=== PATIENT | male | born 1955 | race Asian ===

== ENCOUNTER 2019-08-05 18:18 | Inpatient (IN) | payer BC ==
[~2019-08-05] VITALS: Ht 175.3 cm; Wt 78.9 kg
--- NOTE | 2019-08-05 18:20 | NUR ---
PT BIBA TO BED 09.
[2019-08-05 18:25] VITALS: BP 80/52
[2019-08-05] MEDS ORDERED: NACL 0.9% 1,000 ML IV ONE ×2 (18:35→19:15)
--- NOTE | 2019-08-05 18:38 | NUR ---
received from ems from pt's home sudden onset of palpitations with sob upon getting out of bed to go to restroom today as per pt. syncope---no injury denies dizziness at this time---full clear speech oriented name place time event
--- NOTE | 2019-08-05 18:48 | NUR ---
pacer pads placed on pt---lab unable to draw 2 to hypotension persist
--- NOTE | 2019-08-05 18:49 | NUR ---
cxr at bedside
--- NOTE | 2019-08-05 19:02 | NUR ---
remains reverse charlene--lab able to draw now
--- NOTE | 2019-08-05 19:25 | NUR ---
REPORT RECEIVED FROM KAUSHIK RN, PT IS AOX4, PATIENT SHIVERING AND COLD. HR 52, BP 78/46, RR 12, SPO2 100%. UNABLE TO DETERMINE TEMP, LAST TAKEN WAS 97.1 PER KAUSHIK HYMAN. PT ON 2L O2 NC. DR BENITEZ AT BEDSIDE.
--- NOTE | 2019-08-05 19:25 | NUR ---
PT PLACED IN REVERSE [place], FAMILY AT BEDSIDE
[2019-08-05 19:29] LABS: BASOPHILS % (AUTO) 0.6 % (0.0-2.0); EOSINOPHILS # (AUTO) 0.2 K/uL (0-0.4); EOSINOPHILS % (AUTO) 2.8 % (0.0-4.0); HEMATOCRIT 37.2 % (36-52); HEMOGLOBIN 11.9 g/dL (12.0-18.0); LYMPHOCYTES # (AUTO) 2.1 K/uL (2.0-11.5); LYMPHOCYTES % (AUTO) 30.8 % (20.5-51.1); MEAN CORPUSCULAR HEMOGLOBIN 31 pg (27-31); MEAN CORPUSCULAR HGB CONC 32 g/dL (33-37); MEAN CORPUSCULAR VOLUME 96.1 fL (80-94); MONOCYTES # (AUTO) 0.5 K/uL (0.8-1.0); MONOCYTES % (AUTO) 7.4 % (1.7-9.3); NEUTROPHILS % (AUTO) 58.4 % (42.2-75.2); PLATELET COUNT (AUTO) 267 K/uL (140-450); RED BLOOD CELL COUNT(AUTO) 3.87 MIL/uL (4.20-6.10); RED CELL DISTRIBUTION WIDTH 13.9 % (11.6-13.7); WHITE BLOOD COUNT (AUTO) 6.8 K/uL (4.8-10.8)
--- NOTE | 2019-08-05 19:32 | NUR ---
INFLUENZA SWAB OBTAINED
--- NOTE | 2019-08-05 19:35 | NUR ---
LAB AT BEDSIDE
[2019-08-05 19:47] LABS: ALBUMIN 3.1 g/dL (3.4-5.0); ANION GAP 14.8 (8-16); CARBON DIOXIDE 26.7 mmol/L (21-32); CREATININE 2.6 mg/dL (0.6-1.3); POTASSIUM 4.5 mmol/L (3.5-5.1); TOTAL BILIRUBIN 0.9 mg/dL (0.0-1.0)
[2019-08-05] MEDS ORDERED: metroNIDAZOLE 500 MG/NS PREMIX 100 ML IV ONE (20:55)
[2019-08-05] MEDS ORDERED: LEVOFLOXACIN 500 MG/D5W PREMIX 100 ML IV ONE (20:55)
--- NOTE | 2019-08-05 21:15 | NUR ---
PATIENT AOX4, BREATHING EVEN AND UNLABORED, SKIN WARM AND DRY. FAMILY AT BEDSIDE
--- NOTE | 2019-08-05 21:21 | NUR ---
PT STATES HE IS STILL UNABLE TO URINATE, DR BENITEZ MADE AWARE
--- NOTE | 2019-08-05 22:06 | NUR ---
METRONIDAZOLE ORDERED
[2019-08-05] MEDS ORDERED: NACL 0.9% 1,000 ML IV SCH (22:11)
[2019-08-05] MEDS ORDERED: HYDROcodone/APAP 5/325 MG 1 TAB TAB PO PRN (22:15)
[2019-08-05] MEDS ORDERED: ONDANSETRON 4 MG/2 ML VIAL IM/IVP PRN (22:15)
[2019-08-05] MEDS ORDERED: LORazepam 2 MG/ML VIAL IM/IVP PRN (22:15)
[2019-08-05] MEDS ORDERED: DOCUSATE SODIUM 100 MG GELCAP PO PRN (22:15)
[2019-08-05] MEDS ORDERED: ACETAMINOPHEN 325 MG TAB PO PRN (22:15)
[2019-08-05] MEDS ORDERED: ZOLPIDEM 5 MG TAB PO PRN (22:15)
[2019-08-05] MEDS ORDERED: MORPHINE SULFATE 2 MG/ML SYR IVP PRN (22:15)
--- NOTE | 2019-08-05 22:26 | NUR ---
PT STILL UNABLE TO URINATE, RESIDENT AT BEDSIDE AND MADE AWARE. PT AOX4, BREATHING EVEN AND UNALBORED
[2019-08-05 22:46] LABS: CHOL/HDL RATIO 3.6 (1-4.5); FREE T4 (FREE THYROXINE) 1.2 ng/dL (0.76-1.46); MAGNESIUM 1.9 mg/dL (1.8-2.4); PHOSPHORUS 4.7 mg/dL (2.5-4.9); THYROID STIMULATING HORMONE 5.22 uIU/mL (0.34-3.74)
--- NOTE | 2019-08-05 22:50 | NUR ---
Patient will be admitted to care of DR SCHNEIDER. Admited to TELE. Will go to room 107B. Belongings list completed. Report to JEREL HYMAN.
--- NOTE | 2019-08-05 22:50 | NUR ---
RECEIVED BEDSIDE REPORT FROM ER NURSE. PATIENT IS AWAKE, ALERT, AND COOPERATIVE. ADMITTING DIAGNOSIS SYNCOPE. RESPIRATION EVEN UNLABORED ON ROOM AIR. NO DISTRESS NOTED. SKIN IS WARM AND DRY. IV PATENT AND INTACT. HEART RATE REGULAR. S1&S2 NOTED. LUNGS SOUNDS CLEAR ON AUSCULTATION. BOWEL SOUNDS PRESENT IN ALL QUADRANTS. ABDOMEN SOFT AND NON-TENDER. DENIES PAIN. LAST BM 08/05/19. MRSA SCREEN DONE. VITALS WERE TAKEN. ORIENT PATIENT TO THE ROOM, STAFF, AND CALL LIGHT. ALL SAFETY MEASURES IN PLACE. BED IS AT LOW POSITION. CALL LIGHT WITHIN REACH AND VERBALIZES ITS USE. WILL CONTINUE TO MONITOR.
[2019-08-05] MEDS: CALCIUM CARB/VIT-D 500 MG/200 IU 1 TAB PO SCH (23:27)
[2019-08-05] MEDS: DEXT 5% / NACL 0.9% 500 ML IV SCH (23:28)
--- NOTE | 2019-08-05 23:30 | NUR ---
PATIENT IS HUNGRY. SANDWICH AND WATER PROVIDED. INSTRUCT PATIENT AT MIDNIGHT NO MORE EATING OR DRINKING PER DR. ORDER. WILL CONTINUE TO MONITOR.
[2019-08-05 23:35] VITALS: BP 114/71
[2019-08-06] VITALS (8 sets, daily range): BP systolic 116–144; BP diastolic 69–89
--- NOTE | 2019-08-06 00:10 | NUR ---
VITALS WERE TAKEN. PATIENT IN STABLE CONDITION. NO DISTRESS NOTED. WILL CONTINUE TO MONITOR.
--- NOTE | 2019-08-06 02:19 | NUR ---
CHECKED PATIENT. PATIENT SLEEPING RESPIRATION EVEN UNLABORED ON ROOM AIR. NO DISTRESS NOTED. WILL CONTINUE TO MONITOR.
--- NOTE | 2019-08-06 04:00 | NUR ---
VITALS WERE TAKEN. PATIENT IN STABLE CONDITION. NO DISTRESS NOTED. DENIES PAIN. WILL CONTINUE TO MONITOR.
[2019-08-06] MEDS: metroNIDAZOLE 500 MG/NS PREMIX 100 ML IV SCH ×3 (04:36→20:12)
[2019-08-06] MEDS: DEXT 5% / NACL 0.9% 500 ML IV SCH ×3 (06:54→23:56)
[2019-08-06 07:00] LABS: BASOPHILS % (AUTO) 0.4 % (0.0-2.0); EOSINOPHILS % (AUTO) 0.2 % (0.0-4.0); HEMATOCRIT 35.9 % (36-52); HEMOGLOBIN 11.4 g/dL (12.0-18.0); LYMPHOCYTES # (AUTO) 1.4 K/uL (2.0-11.5); LYMPHOCYTES % (AUTO) 19.9 % (20.5-51.1); MEAN CORPUSCULAR HEMOGLOBIN 31 pg (27-31); MEAN CORPUSCULAR HGB CONC 32 g/dL (33-37); MEAN CORPUSCULAR VOLUME 96.3 fL (80-94); MONOCYTES # (AUTO) 0.5 K/uL (0.8-1.0); MONOCYTES % (AUTO) 7.3 % (1.7-9.3); NEUTROPHILS % (AUTO) 72.2 % (42.2-75.2); PLATELET COUNT (AUTO) 265 K/uL (140-450); RED BLOOD CELL COUNT(AUTO) 3.73 MIL/uL (4.20-6.10); RED CELL DISTRIBUTION WIDTH 13.5 % (11.6-13.7); WHITE BLOOD COUNT (AUTO) 6.9 K/uL (4.8-10.8)
--- NOTE | 2019-08-06 07:05 | NUR ---
ENDORSED PATIENT TO DAY SHIFT NURSE. PATIENT IS IN STABLE CONDITION.
--- NOTE | 2019-08-06 07:06 | NUR ---
RECEIVED REPORT FROM BODY COMPONENT ENGINEER NURSE JEREL FOR CONTINUITY OF CARE. PT IN STABLE CONDITION. RESPIRATIONS EVEN AND UNLABORED, ROOM AIR. IV INTACT AND PATENT. SAFETY MEASURES IN PLACE. BED IN LOW POSITION. CALL LIGHT AT BEDSIDE. WILL CONTINUE TO MONITOR.
[2019-08-06 07:41] LABS: ANION GAP 15.2 (8-16); CARBON DIOXIDE 26.9 mmol/L (21-32); POTASSIUM 5.1 mmol/L (3.5-5.1)
[2019-08-06 07:48] LABS: MAGNESIUM 1.6 mg/dL (1.8-2.4); PHOSPHORUS 4.8 mg/dL (2.5-4.9)
[2019-08-06 08:16] LABS: PROTHROMBIN TIME 11.1 secs (10.8-13.4)
--- NOTE | 2019-08-06 08:27 | NUR ---
PATIENT HAS BEEN SCREENED AND CATEGORIZED MODERATE NUTRITION RISK. PATIENT WILL BE SEEN WITHIN 3-5 DAYS OF ADMISSION. 08/08/19 08/10/[address]
--- NOTE | 2019-08-06 09:08 | NUR ---
ULTRASOUND AT BEDSIDE AT THIS TIME FOR CHEST CAROTID AND KIDNEY. PT IN STABLE CONDITION.
[2019-08-06] MEDS: LEVOFLOXACIN 250 MG/D5 PREMIX 50 ML IV SCH (09:53)
[2019-08-06] MEDS: CALCIUM CARB/VIT-D 500 MG/200 IU 1 TAB PO SCH (09:53)
[2019-08-06] MEDS: LACTOBACILLUS RHAMNOSUS GG 1 EACH CAP PO SCH (09:53)
[2019-08-06] MEDS: SIMETHICONE 80 MG TAB.CHEW PO PRN ×2 (09:55→14:31)
[2019-08-06] MEDS ORDERED: LOVA20TA8 PO (10:21)
[2019-08-06] MEDS ORDERED: FEBU40TA PO (10:21)
[2019-08-06] MEDS ORDERED: METF1000 PO (10:21)
[2019-08-06] MEDS ORDERED: HUM SUBQ (10:21)
[2019-08-06] MEDS ORDERED: CARV6.25 PO (10:21)
[2019-08-06] MEDS ORDERED: LOSA25TA43 PO (10:21)
[2019-08-06] MEDS ORDERED: INSU100I7 SQ (10:21)
[2019-08-06] MEDS ORDERED: OMEP20TC12 PO (10:21)
--- NOTE | 2019-08-06 10:21 | NUR ---
NUCLEAR MED AT BEDSIDE FOR ECHO AT THIS TIME. PT IN STABLE CONDITION.
[2019-08-06] MEDS ORDERED: MAG SULF 2000 MG/WATER PREMIX 50 ML IV ONE (11:05)
[2019-08-06] MEDS ORDERED: KCL 20 MEQ/WATER INJ PREMIX 200 ML IV PRN (11:10)
--- NOTE | 2019-08-06 12:10 | NUR ---
PT TALKING WITH FAMILY AT BEDSIDE AT THIS TIME. RESPIRATIONS EVEN AND UNLABORED. BED IN LOW POSITION. WILL CONTINUE TO MONITOR.
--- NOTE | 2019-08-06 14:49 | NUR ---
PT LYING IN BED IN STABLE CONDITION WATCHING TV. RESPIRATIONS EVEN AND UNLABORED. BED IN LOW POSITION. WILL CONTINUE TO MONITOR.
--- NOTE | 2019-08-06 16:46 | NUR ---
ALEXANDR ARMSTRONG CONSULTING WITH PT AT BEDSIDE AT THIS TIME. PT IN STABLE CONDITION.
--- NOTE | 2019-08-06 17:05 | NUR ---
JOSE J assessment/discharge plan Basic Screen: Yes Name: Winifred Hayes Home Relationship: daughter Pre-Admission Living Arrangements: Lives with Other Other: : Bryan Prior ADL Independent Current Home Health Name/Tel: N/A Current DME/02 Name/Tel: walker, cane, no home O2 Current Hospice Name/Tel: N/A Current Dialysis Name/Tel: N/A Healthcare Decision Maker: Patient Advance Directive No Information Taught: Community Resources Person Taught: Patient Teaching Tools: Community Resources Verbal Factors Affecting Learning: None Participation Level: Active Evaluation: Gestures Understanding Verbalizes Understanding Educator: JOSE J Butler Tentative Discharge Plan Summary: Patient is a 63 year old male admitted for syncope. I met with patient at bedside. Patient alert and oriented x4. Patient lives at home with his Bryan and plans to return home upon discharge. Patient's pcp is Charis Ordaz ([place], [place]). Patient lives in [place], [place]. He stated his pcp has been his pcp for over 20 years and speaks his primary language. He told me his children visit him often and help him with ADLs if needed. Patient's children also help him with transportation. I provided him with education on [employer] www.[employer].org for community resources. Cheese Supervisor and/or Auto Body Mechanic Apprentice will follow up as needed. Signature: JOSE J Butler Date: Aug 06, 2019
--- NOTE | 2019-08-06 17:20 | NUR ---
PT WALKING AROUND UNIT IN STABLE CONDITION. PT GAIT STEADY AT THIS TIME VS UNSTEADY IN AM. WILL CONTINUE TO MONITOR.
--- NOTE | 2019-08-06 19:09 | NUR ---
GAVE REPORT TO COMPUTATIONAL SCIENCES PROFESSOR NURSE TOMA FOR CONTINUITY OF CARE. PT IN STABLE CONDITION.
--- NOTE | 2019-08-06 19:10 | NUR ---
RECEIVED BEDSIDE REPORT FROM DAY SHIFT NURSEJUAN. FAMILY AT BEDSIDE. PATIENT IS AWAKE, ALERT, AND COOPERATIVE. RESPIRATION EVEN UNLABORED ON ROOM AIR. NO DISTRESS NOTED. SKIN IS WARM AND DRY. IV SITE ON RAC 20G, PATENT, INTACT AND ASYMPTOMATIC. ALL SAFETY MEASURES IN PLACE. BED IS AT LOW POSITION. CALL LIGHT WITHIN REACH.
[2019-08-06] MEDS: CARVEDILOL 6.25 MG TAB PO SCH (20:11)
--- NOTE | 2019-08-06 20:12 | NUR ---
GIVEN COREG AND FLAGYL MD ORDERED. PT TOLERATED WELL.
[2019-08-06 21:20] LABS: APPEARANCE,URINE CLEAR (CLEAR); BILIRUBIN,URINE NEGATIVE (NEGATIVE); BLOOD, URINE TRACE-I (NEGATIVE); COLOR,URINE YELLOW (YELLOW); LEUKOCYTE ESTERASE ,URINE NEGATIVE (NEGATIVE); NITRITE, URINE NEGATIVE (NEGATIVE); PH,URINE 5.5 (5.0-9.0); UGLUCOSE NEGATIVE (NEGATIVE)
[2019-08-06 21:25] LABS: BARBITURATE, URINE NEG. ng/ml (NEG <=200); BENZODIAZEPINE, URINE NEG. ng/mL (NEG <=200); CANNABINOID, URINE NEG. ng/mL (NEG <=50); COCAINE, URINE NEG. ng/mL (NEG <=300); OPIATE, URINE NEG. ng/mL (NEG <=2000); PHENCYCLIDINE SCREEN,URINE NEG. ng/mL (NEG <=25)
--- NOTE | 2019-08-06 22:05 | NUR ---
PT AWAKE, LYING IN BED. NO ACUTE DISTRESS NOTED.
[2019-08-07] VITALS: BP 121/80
[2019-08-07 00:05] VITALS: BP 129/80
[2019-08-07 00:10] VITALS: BP 101/47
--- NOTE | 2019-08-07 00:10 | NUR ---
VS CHECKED, ORTHOSTATIC BP CHECKED, WILL CONTINUE TO MONITOR.
--- NOTE | 2019-08-07 02:22 | NUR ---
PT LYING ON BED, WATCHING TV. NO ACUTE DISTRESS NOTED.
[2019-08-07 04:00] VITALS: BP 130/84
[2019-08-07] MEDS: metroNIDAZOLE 500 MG/NS PREMIX 100 ML IV SCH (04:16)
--- NOTE | 2019-08-07 04:16 | NUR ---
GIVEN FLAGYL MD ORDERED, PT TOLERATED WELL.
[2019-08-07 07:03] LABS: BASOPHILS % (AUTO) 0.6 % (0.0-2.0); EOSINOPHILS # (AUTO) 0.2 K/uL (0-0.4); HEMATOCRIT 37.9 % (36-52); HEMOGLOBIN 12.2 g/dL (12.0-18.0); LYMPHOCYTES # (AUTO) 1.9 K/uL (2.0-11.5); LYMPHOCYTES % (AUTO) 32.7 % (20.5-51.1); MEAN CORPUSCULAR HEMOGLOBIN 31 pg (27-31); MEAN CORPUSCULAR HGB CONC 32 g/dL (33-37); MONOCYTES # (AUTO) 0.7 K/uL (0.8-1.0); MONOCYTES % (AUTO) 11.4 % (1.7-9.3); NEUTROPHILS # (AUTO) 3.1 K/uL (1.8-7.7); NEUTROPHILS % (AUTO) 52.3 % (42.2-75.2); PLATELET COUNT (AUTO) 293 K/uL (140-450); RED BLOOD CELL COUNT(AUTO) 3.95 MIL/uL (4.20-6.10); RED CELL DISTRIBUTION WIDTH 13.8 % (11.6-13.7); WHITE BLOOD COUNT (AUTO) 5.9 K/uL (4.8-10.8)
--- NOTE | 2019-08-07 07:20 | NUR ---
RECEIVED PT FROM THE COLLAR SETTER NURSE. PT IS AWAKE AND ORIENTED. PT DENIES ANY DIZZINESS, LIGHTHEADEDNESS, PORT[place]O. PT V/S WITHIN NORMAL. ON ROOM AIR. IV ON L AC 22G, D5NS RUNNING AT 60ML/HR. PT C/O COUGHING X 3 WEEKS, NON PRODUCTIVE. KEPT HIM UP ALL NIGHT. OTHER FIELDS PT IS AMBULATORY. SKIN INTACT. WILL CONTINUE TO MONITOR PT.
[2019-08-07 07:24] LABS: ANION GAP 14.6 (8-16); CARBON DIOXIDE 26.9 mmol/L (21-32); CREATININE 2.6 mg/dL (0.6-1.3); POTASSIUM 4.5 mmol/L (3.5-5.1)
[2019-08-07 08:00] VITALS: BP 147/91
--- NOTE | 2019-08-07 08:30 | NUR ---
DR VAIL HERE TO SEE PT. PER , DC FLUIDS, 1 DOSE OF LASIX, AND REQUEST RT TO GIVE BREATHING TX.
[2019-08-07] MEDS: LACTOBACILLUS RHAMNOSUS GG 1 EACH CAP PO SCH (08:37)
[2019-08-07] MEDS: CALCIUM CARB/VIT-D 500 MG/200 IU 1 TAB PO SCH (08:37)
[2019-08-07] MEDS: LEVOFLOXACIN 250 MG/D5 PREMIX 50 ML IV SCH (08:37)
[2019-08-07] MEDS: CARVEDILOL 6.25 MG TAB PO SCH (08:37)
--- NOTE | 2019-08-07 08:44 | NUR ---
ADMINISTERED MORNING MEDS. PT TOLERATED WELL. C/O HIS R ARM SWELLING. CHECKED THE IV. STILL PATENT. NO SIGNS OF INFILTRATION. WILL KEEP MONITORING. MAYBE START ANOTHER IV ON THE OTHER ARM TO GIVE ARM REST. FAMILY JUST CAME TO VISIT. WILL CONTINUE TO MONITOR PT.
[2019-08-07] MEDS ORDERED: FUROSEMIDE 20 MG/2 ML VIAL IVP SCH (08:50)
[2019-08-07] MEDS ORDERED: SODIUM PHOS / POTASSIUM PHOS 1 PKT PDR PO SCH (09:00)
[2019-08-07] MEDS ORDERED: CALCIUM CARB/VIT-D 500 MG/200 IU 1 TAB PO SCH (09:00)
--- NOTE | 2019-08-07 10:23 | NUR ---
DC ORDER IS IN. WILL START DC PROCESS.
[2019-08-07] MEDS ORDERED: INFLUENZA VACCINE QUAD 0.5 ML SYR IMVAC PRN (11:10)
--- NOTE | 2019-08-07 11:10 | NUR ---
DC INSTRUCTIONS GIVEN TO PT AND FAMILY. VERBALIZED UNDERSTANDING. AWAITING FLU SHOT ORDER FROM .
--- NOTE | 2019-08-07 11:55 | NUR ---
IV REMOVED. NO BLEEDING NOTED. FLU SHOT GIVEN. PT TOLERATED WELL. GETTING DRESSED. PERSONAL BELONGINGS PUT TOGETHER. WILL LET US KNOW WHEN PT IS READY TO LEAVE.
--- NOTE | 2019-08-07 12:00 | NUR ---
WHEELCHAIRED PT OUT TO THE CAR. PT IS IN STABLE CONDITION. FAMILY ACCOMPANYING PT W/ PERSONAL BELONGINGS.
[2019-08-07] MEDS ORDERED: INSU100I7 SQ (18:17)
[2019-08-07] MEDS ORDERED: HUM SUBQ (18:31)
[2019-08-08] MEDS ORDERED: FURO-572 PO (05:55)
== END 2019-08-07 12:00 | disposition home or self-care (01) | DRG 194 ==
LOC: MED 18:18 → MTU 22:11
PROVIDERS: ADMIT General Practice; ATTEND General Practice
DX: I13.0 Hypertensive heart and chronic kidney disease with heart failure and stage 1 through stage 4 chronic kidney disease, or unspecified chronic kidney disease (principal); N17.0 Acute kidney failure with tubular necrosis; K80.00 Calculus of gallbladder with acute cholecystitis without obstruction; I50.43 Acute on chronic combined systolic (congestive) and diastolic (congestive) heart failure; E11.22 Type 2 diabetes mellitus with diabetic chronic kidney disease; E83.42 Hypomagnesemia; I42.9 Cardiomyopathy, unspecified; G90.8 Other disorders of autonomic nervous system; E11.40 Type 2 diabetes mellitus with diabetic neuropathy, unspecified; K21.9 Gastro-esophageal reflux disease without esophagitis; E78.5 Hyperlipidemia, unspecified; E87.5 Hyperkalemia; E83.51 Hypocalcemia; E11.65 Type 2 diabetes mellitus with hyperglycemia; E02 Subclinical iodine-deficiency hypothyroidism; D63.8 Anemia in other chronic diseases classified elsewhere; M10.9 Gout, unspecified; N18.9 Chronic kidney disease, unspecified; Z88.0 Allergy status to penicillin; I25.2 Old myocardial infarction; Z86.73 Personal history of transient ischemic attack (TIA), and cerebral infarction without residual deficits; Z83.3 Family history of diabetes mellitus; Z82.0 Family history of epilepsy and other diseases of the nervous system
CPT/HCPCS: 36415; 70450; 71045; 76604; 76705; 76770; 80048; 80053; 80305; 81003; 82150; 82570; 82948; 83036; 83605; 83690; 83735; 83880; 84100; 84300; 84439; 84443; 84484; 85025; 85610; 85730; 87040; 87081; 87804; 93880; 96361; 96365; 96367; 97116; 97161-GP; 97530; 99285; J1940; J1956; J3475; J3480; J3490; J7030; J7042; Q0092